=== PATIENT | female | born 1980 | race Hispanic/Latino ===

== ENCOUNTER 2021-07-11 23:33 | Emergency (ER) | payer OTHER ==
[~2021-07-11] VITALS: Ht 157.5 cm; Wt 73.9 kg
[2021-07-11 23:34] VITALS: BP 126/75
[2021-07-12] MEDS ORDERED: PREN1CHW6 PO (02:17)
[2021-07-12] MEDS ORDERED: ALPRAZolam 0.25 MG TAB PO ONE (03:05)
[2021-07-12] MEDS ORDERED: OXYMETAZOLINE 0.05% NASAL SPRAY (AFRIN) ONE (03:05)
== END 2021-07-12 03:32 | disposition home or self-care (01) ==
LOC: M ED 23:33
DX: O99.511 Diseases of the respiratory system complicating pregnancy, first trimester (principal); R09.81 Nasal congestion; G47.00 Insomnia, unspecified; Z3A.12 12 weeks gestation of pregnancy; O99.351 Diseases of the nervous system complicating pregnancy, first trimester

== ENCOUNTER → 2021-09-03 | Outpatient (CLI) | payer OTHER ==
[~2021-09-03] MED LIST: PRED5PAK PO; PREN1CHW6 PO; VITA500C24 PO
== END ==
LOC: M LABSMTC 10:05
PROVIDERS: ATTEND Anesthesiology
DX: Z01.818 Encounter for other preprocedural examination (principal); Z11.52 Encounter for screening for COVID-19

== ENCOUNTER 2021-09-08 09:45 | Day surgery (SDC) | payer OTHER ==
[~2021-09-08] VITALS: Ht 157.5 cm; Wt 74.1 kg
[~2021-09-08 09:45] MED LIST changes: +LR 1,000 ML IV ONE
[2021-09-08] MEDS ORDERED: METO1TAB32 PO (10:32)
[2021-09-08 10:47] LABS: BLOOD UREA NITROGEN 6 MG/DL (7-18); CALCIUM LEVEL 9.4 MG/DL (8.5-10.1); CARBON DIOXIDE LEVEL 25 MEQ/L (21-32); CHLORIDE LEVEL 106 MEQ/L (98-107); GLOMERULAR FILTRATION RATE > 60.0 (>60); GLUCOSE, FASTING 127 MG/DL (70-100); POTASSIUM SERUM 3.7 MEQ/L (3.5-5.1); SODIUM LEVEL 136 MEQ/L (136-145)
[2021-09-08] MEDS ORDERED: LIDOCAINE W/EPINEPHRINE 1% 20ML VIAL As Ordered ONE (11:06)
[2021-09-08] MEDS ORDERED: OXYMETAZOLINE 0.05% NASAL SPRAY (AFRIN) As Ordered ONE (11:07)
[2021-09-08] MEDS ORDERED: COCAINE 4% 4ML NASAL SOLUTION BTL As Ordered ONE (11:07)
[2021-09-08] MEDS ORDERED: SUGAMMADEX SODIUM 500 MG/5 ML VIAL (BRIDION) As Ordered ONE (11:41)
[2021-09-08] MEDS ORDERED: LIDOCAINE 2% 100MG/5ML SDV (FOR ANES.) As Ordered ONE (11:41)
[2021-09-08] MEDS ORDERED: dexameTHASONE 4 MG/ML 1ML VIAL (J1100 PER 1MG) As Ordered ONE (11:41)
[2021-09-08] MEDS ORDERED: fentaNYL 100 MCG/2 ML INJECTION As Ordered ONE (11:41)
[2021-09-08] MEDS ORDERED: ROCURONIUM BROMIDE 50 MG/5 ML VIAL As Ordered ONE (11:41)
[2021-09-08] MEDS ORDERED: propofoL 200 MG/20 ML VIAL As Ordered ONE (11:41)
[2021-09-08] MEDS ORDERED: ONDANSETRON 4MG/2ML VIAL As Ordered ONE (11:41)
[2021-09-08] MEDS ORDERED: METOCLOPRAMIDE INJ 10MG/2ML VIAL (J2765 PER 1) As Ordered ONE (11:41)
[2021-09-08] MEDS ORDERED: ACETAMINOPHEN 1000MG 100ML IV BTL (OFIRMEV) (J0131 PER 10MG) As Ordered ONE (11:49)
[2021-09-08] MEDS ORDERED: ePHEDrine SULFATE 25 MG/5 ML(5MG/ML) SYRINGE As Ordered ONE (11:52)
[2021-09-08] MEDS ORDERED: LR 1,000 ML IV SCH ×2 (12:50→12:55)
[2021-09-08] MEDS ORDERED: ONDANSETRON 4MG/2ML VIAL IV PRN ×2 (12:50→12:55)
[2021-09-08] MEDS ORDERED: fentaNYL 100 MCG/2 ML INJECTION IV PRN (12:50)
[2021-09-08] MEDS ORDERED: oxyCODONE 5MG TAB PO PRN (12:50)
[2021-09-08] MEDS ORDERED: PERCOCET 5MG/325MG TAB PO PRN (12:55)
[2021-09-08 13:44] VITALS: BP 133/72
== END 2021-09-08 13:56 | disposition home or self-care (01) ==
LOC: M SDC 09:45
PROVIDERS: ATTEND Otolaryngology
DX: O99.512 Diseases of the respiratory system complicating pregnancy, second trimester (principal); J34.3 Hypertrophy of nasal turbinates; J34.2 Deviated nasal septum; O24.419 Gestational diabetes mellitus in pregnancy, unspecified control; O13.2 Gestational [pregnancy-induced] hypertension without significant proteinuria, second trimester; O99.342 Other mental disorders complicating pregnancy, second trimester; F33.9 Major depressive disorder, recurrent, unspecified; F41.9 Anxiety disorder, unspecified; O99.352 Diseases of the nervous system complicating pregnancy, second trimester; G43.909 Migraine, unspecified, not intractable, without status migrainosus; R00.2 Palpitations; Z91.040 Latex allergy status; Z3A.20 20 weeks gestation of pregnancy
CPT/HCPCS: 30140; 30520; 36415; 80048; 88300; C9046; J0131; J1100; J2405; J2765; J3010

== ENCOUNTER 2021-12-13 19:14 | Inpatient (IN) | payer OTHER ==
[~2021-12-13] VITALS: Ht 157.5 cm; Wt 77.1 kg
[2021-12-13] VITALS (19 sets, daily range): BP systolic 114–149; BP diastolic 56–86
[~2021-12-13 19:14] MED LIST changes: -LR 1,000 ML IV ONE; +METO1TAB32 PO
[2021-12-13] MEDS ORDERED: SYNT50TA PO (19:32)
[2021-12-13] MEDS ORDERED: INSU100I9 SQ (19:37)
[2021-12-13 20:11] LABS: ALT/SGPT 46 U/L (12-78); BILIRUBIN,TOTAL 0.4 MG/DL (0.2-1.0); CREATININE FOR GFR 0.46 MG/DL (0.55-1.30); GLOMERULAR FILTRATION RATE > 60.0 (>60); LDH LACTATE DEHYDROGENASE 196 U/L (84-246); URIC ACID 4.5 MG/DL (2.6-6.0)
[2021-12-13] MEDS ORDERED: diphenhydrAMINE 50MG/ML VIAL (J1200) IV ONE (23:30)
[2021-12-13] MEDS ORDERED: METOCLOPRAMIDE INJ 10MG/2ML VIAL (J2765 PER 1) IV ONE (23:30)
[2021-12-13] MEDS ORDERED: NIFEdipine 10 MG CAP PO ONE (23:30)
[2021-12-14] VITALS (43 sets, daily range): BP systolic 101–156; BP diastolic 51–84
[2021-12-14] MEDS ORDERED: NS 1,000 ML IV SCH (02:05)
[2021-12-14] MEDS ORDERED: METOCLOPRAMIDE INJ 10MG/2ML VIAL (J2765 PER 1) IV ONE (05:45)
[2021-12-14] MEDS ORDERED: diphenhydrAMINE 50MG/ML VIAL (J1200) IV ONE (05:45)
[2021-12-14] MEDS ORDERED: LEVOTHYROXINE 50MCG TABLET (0.05MG) PO SCH (06:00)
[2021-12-14 06:48] LABS: HEMATOCRIT 29.2 % (36.0-47.0); HEMOGLOBIN 8.8 g/dl (12.0-15.5); MEAN CORPUSCULAR HEMOGLOBIN 22.8 pg (27.0-33.0); MEAN CORPUSCULAR HGB CONC 30.1 g/dl (32.0-36.5); MEAN CORPUSCULAR VOLUME 75.6 fl (80.0-96.0); PLATELET COUNT, AUTOMATED 203 10^3/uL (150-450); RED BLOOD COUNT 3.86 10^6/uL (4.00-5.40); WHITE BLOOD COUNT 7.3 10^3/uL (4.0-10.0)
[2021-12-14 07:15] LABS: ALT/SGPT 42 U/L (12-78); BILIRUBIN,TOTAL 0.5 MG/DL (0.2-1.0); CREATININE FOR GFR 0.48 MG/DL (0.55-1.30); GLOMERULAR FILTRATION RATE > 60.0 (>60); LDH LACTATE DEHYDROGENASE 167 U/L (84-246); URIC ACID 5.4 MG/DL (2.6-6.0)
[2021-12-14 10:05] LABS: HEPATITIS B SURFACE ANTIGEN NEGATIVE (NEGATIVE)
[2021-12-14] MEDS ORDERED: LABETALOL 200 MG TAB PO ONE (18:15)
[2021-12-14] MEDS ORDERED: LABE20TAB PO (18:35)
== END 2021-12-14 19:08 | disposition home or self-care (01) | DRG 833 ==
LOC: M LDO 19:14 → M LDI 12-14 00:41
PROVIDERS: ADMIT Obstetrics & Gynecology; ATTEND Advanced Practice Midwife
DX: O14.03 Mild to moderate pre-eclampsia, third trimester (principal); Z3A.34 34 weeks gestation of pregnancy; O34.211 Maternal care for low transverse scar from previous cesarean delivery; O24.414 Gestational diabetes mellitus in pregnancy, insulin controlled; O99.283 Endocrine, nutritional and metabolic diseases complicating pregnancy, third trimester; E03.9 Hypothyroidism, unspecified; Z91.040 Latex allergy status; Z79.899 Other long term (current) drug therapy; O99.343 Other mental disorders complicating pregnancy, third trimester; F41.9 Anxiety disorder, unspecified

== ENCOUNTER 2023-12-06 12:04 | Observation (INO) | payer SELFPAY ==
[~2023-12-06] VITALS: Ht 157.5 cm; Wt 67.0 kg
[~2023-12-06 12:04] MED LIST changes: +DULA3PEN SQ; +FERR325T3 PO; +INSU100I24 SQ; +LABE20TAB PO; +LARI1TAB PO; +LIDOCAINE 2% 100MG/5ML SDV (FOR ANES.) As Ordered ONE; +LISI20TA33 PO; +METF500T13 PO; +MIDAZOLAM INJ 2MG/2ML VIAL As Ordered ONE; +MONT10TA97 PO; +ONDANSETRON 4MG 2ML VIAL As Ordered ONE; +RANO500T2 PO; +ROCURONIUM BROMIDE 50MG/5ML VIAL As Ordered ONE; +SEMA2PEN SQ; +SYNT50TA PO; +dexmedeTOMIDine (4MCG/ML)200MCG/50ML BTL (PRECEDEX) As Ordered ONE; +fentaNYL 250 MCG/5 ML INJECTION As Ordered ONE; +propofoL 200 MG/20 ML VIAL As Ordered ONE
[2023-12-06 12:40] LABS: HEMATOCRIT 40.3 % (36.0-47.0); HEMOGLOBIN 13.7 g/dl (12.0-15.5); MEAN CORPUSCULAR VOLUME 88.2 fl (80.0-96.0); PLATELET COUNT, AUTOMATED 257 10^3/uL (150-450); RED BLOOD COUNT 4.57 10^6/uL (4.00-5.40); WHITE BLOOD COUNT 6.4 10^3/uL (4.0-10.0)
[2023-12-06 13:06] LABS: BLOOD UREA NITROGEN 10 MG/DL (9-23); CALCIUM LEVEL 8.9 MG/DL (8.5-10.1); CARBON DIOXIDE LEVEL 30 MMOL/L (20-31); CHLORIDE LEVEL 104 MMOL/L (98-107); CREATININE FOR GFR 0.45 MG/DL (0.55-1.30); GLOMERULAR FILTRATION RATE > 60.0 (>58); GLUCOSE, FASTING 106 MG/DL (60-100); POTASSIUM SERUM 3.5 MMOL/L (3.5-5.1); SODIUM LEVEL 137 MMOL/L (136-145)
[2023-12-06] MEDS ORDERED: SERT50TA29 PO (13:11)
[2023-12-06] MEDS ORDERED: MUPI30CR TOP (13:11)
[2023-12-06] MEDS ORDERED: HOME MED LIST COMPLETE! XX SCH (13:15)
[2023-12-06 13:17] LABS: INR 0.96; PARTIAL THROMBOPLASTIN TIME 26.6 SECONDS (24.8-34.2); PROTHROMBIN TIME 12.5 SECONDS (12.5-14.5)
[2023-12-06] MEDS ORDERED: LR 1,000 ML IV SCH (14:15)
[2023-12-06] MEDS: ceFAZolin SOD 2 GM in IV 1 EA IV ONE ×2 (15:02→20:53)
[2023-12-06] MEDS ORDERED: PHENYLephrine 500MCG 5ML (100MCG/ML) SYRINGE As Ordered ONE (15:15)
[2023-12-06] MEDS: HEPARIN SOD (PORCINE) 5000UNITS/ML 1ML VIAL/SYRINGE SQ ONE (15:15)
[2023-12-06] MEDS ORDERED: ACETAMINOPHEN 1000MG 100ML IV BAG As Ordered ONE (15:18)
[2023-12-06] MEDS ORDERED: SUGAMMADEX SODIUM 500 MG/5 ML VIAL (BRIDION) As Ordered ONE (15:18)
[2023-12-06] MEDS ORDERED: HYDROmorphone HCL 2MG/ML 1ML VIAL As Ordered ONE (15:18)
[2023-12-06] MEDS: GENTAMICIN SULF 80MG/2ML VIAL As Ordered ONE (15:33)
[2023-12-06] MEDS: EPINEPHrine INJ 1 MG/ML 1ML AMP As Ordered ONE (17:33)
[2023-12-06] MEDS: LIDOCAINE 1% MDV 20ML VIAL As Ordered ONE (17:34)
[2023-12-06] MEDS ORDERED: PERCOCET 5MG/325MG TAB PO PRN (17:55)
[2023-12-06] MEDS: BACITRACIN OINTMENT 30GM TUBE As Ordered ONE (18:00)
[2023-12-06] MEDS: LR 1,000 ML IV SCH ×2 (18:35→20:53)
[2023-12-06] MEDS ORDERED: fentaNYL 100 MCG/2 ML INJECTION IV PRN (18:35)
[2023-12-06] MEDS ORDERED: ONDANSETRON 4MG 2ML VIAL IV PRN (18:35)
[2023-12-06] MEDS: HYDROMORPHONE HCL 0.5 MG/ 0.5 ML SYRINGE IV PRN (19:10)
[2023-12-06] MEDS: oxyCODONE 5MG TAB PO PRN (19:25)
[2023-12-06 19:58] VITALS: BP 128/86; TEMP 97.7; O2SAT 94
[2023-12-06 20:30] VITALS: BP 126/84; TEMP 97.7; O2SAT 95
[2023-12-06] MEDS: ACETAMINOPHEN TAB 650MG DOSE (2X325MG) PO PRN (20:57)
[2023-12-06 22:00] VITALS: BP 124/84; TEMP 98.1; O2SAT 95
[2023-12-06] MEDS ORDERED: traMADol 50 MG TAB PO PRN (22:40)
[2023-12-06] MEDS: traMADol 50 MG TAB PO PRN (22:50)
[2023-12-06 23:05] VITALS: BP 127/88; TEMP 97.5; O2SAT 96
[2023-12-06] MEDS: ONDANSETRON 4MG 2ML VIAL IV PRN (23:14)
[2023-12-07 00:03] VITALS: BP 127/87; TEMP 97.7; O2SAT 95
[2023-12-07 01:06] VITALS: BP 120/81; TEMP 97.2; O2SAT 96
[2023-12-07 03:57] VITALS: BP 119/81; TEMP 97.7; O2SAT 94
[2023-12-07 08:00] VITALS: BP 119/81; TEMP 98.2; O2SAT 95
[2023-12-07] MEDS ORDERED: TRAM50TA2 PO (11:23)
[2023-12-07 12:00] VITALS: BP 119/81; TEMP 98.6; O2SAT 96
== END 2023-12-07 13:00 | disposition home or self-care (01) ==
LOC: M SDC 12:04 → M MS5PR 20:00
PROVIDERS: ADMIT Plastic Surgery Surgery of the Hand; ATTEND Plastic Surgery Surgery of the Hand
DX: M54.07 Panniculitis affecting regions of neck and back, lumbosacral region (principal); E88.1 Lipodystrophy, not elsewhere classified; L98.7 Excessive and redundant skin and subcutaneous tissue; E11.9 Type 2 diabetes mellitus without complications; Z91.040 Latex allergy status; Z79.899 Other long term (current) drug therapy; Z79.85 Long-term (current) use of injectable non-insulin antidiabetic drugs
CPT/HCPCS: 15830; 36415; 80048; 81025; 85027; 85610; 85730; 88300; 96374; 96375; C9290; J0131; J0171; J0665; J0690; J1100; J1170; J1580; J2250; J2371; J2405; J3010

== ENCOUNTER → 2024-06-21 | Outpatient (CLI) | payer OTHER ==
[~2024-06-21] MED LIST changes: -LIDOCAINE 2% 100MG/5ML SDV (FOR ANES.) As Ordered ONE; -MIDAZOLAM INJ 2MG/2ML VIAL As Ordered ONE; +MUPI30CR TOP; -ONDANSETRON 4MG 2ML VIAL As Ordered ONE; -ROCURONIUM BROMIDE 50MG/5ML VIAL As Ordered ONE; +SERT50TA29 PO; +TRAM50TA2 PO; -dexmedeTOMIDine (4MCG/ML)200MCG/50ML BTL (PRECEDEX) As Ordered ONE; -fentaNYL 250 MCG/5 ML INJECTION As Ordered ONE; -propofoL 200 MG/20 ML VIAL As Ordered ONE
[2024-06-21 12:00] LABS: BLOOD UREA NITROGEN 15 MG/DL (9-23); GLOMERULAR FILTRATION RATE > 60.0 (>58)
== END ==
LOC: M LAB 11:00
PROVIDERS: ATTEND Physician Assistant
DX: Z48.817 Encounter for surgical aftercare following surgery on the skin and subcutaneous tissue (principal)

== ENCOUNTER → 2024-06-22 | Outpatient (CLI) | payer OTHER ==
[~2024-06-22] MED LIST changes: +ISOVUE-370 76% 100ML VIAL As Ordered ONE
== END ==
LOC: M RAD 16:55
PROVIDERS: ATTEND Physician Assistant
DX: R10.9 Unspecified abdominal pain (principal); L90.5 Scar conditions and fibrosis of skin; K76.0 Fatty (change of) liver, not elsewhere classified
CPT/HCPCS: 74178; Q9967

== ENCOUNTER → 2025-02-04 | Outpatient (CLI) | payer OTHER ==
[~2025-02-04] MED LIST changes: +ERGO500029; -ISOVUE-370 76% 100ML VIAL As Ordered ONE; +VITA200016 PO
== END ==
LOC: M RAD 12:44
PROVIDERS: ATTEND Internal Medicine Hematology & Oncology
DX: M79.602 Pain in left arm (principal)